=== PATIENT | female | born 2005 | race African-American/Black ===

== ENCOUNTER 2024-07-04 22:03 | Emergency (ER) | payer SELFPAY ==
[2024-07-04 22:08] VITALS: BP 153/93; PULSE 73; RESP 16; TEMP 37; O2SAT 100
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
--- NOTE | 2024-07-04 22:34 | ED.GENADUL_ITS ---
Discharge Plan Disposition Patient Disposition: Home Condition: Good Discharge Details Clinical Impression: Concussion ED Provider: Maria Gomez Home Meds and New Rx's Prescriptions: No Action No Known Home Meds Discharge Instructions Instructions: Minor Head Injury, Adult ED Additional Instructions: Tylenol and ibuprofen over the counter for headache; follow the directions on the bottle. Call your primary care doctor on Friday to schedule an appointment within one week to followup on your visit here. Return to the emergency department for new or worsening symptoms including severe headache, vomiting, difficulty walking, vertigo, numbness, weakness, or if you have any other concerns. Stand Alone Forms: Work Release HPI General Mode of arrival: ambulatory . Date/Time Provider Initiated Documentation: 07/04/24 22:08 . Limitations to Documentation: no limitations . Information obtained by: patient . HPI Narrative: 19yo previously healthy female presenting after head injury. 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 [place] dizzy and confused afterwards. Does not think she lost conciousness but is not sure. No headache currently. Denies pain or injury elsewhere. No nausea, vomiting, numbness, tingling, weakness, vertigo. Not on any blood thinners. Otherwise in her usual state of health. Related Data Home Medications ?Medication ?Instructions ?Recorded ?Confirmed Unknown [No Known Home Meds] 07/04/24 07/04/24 Allergies Allergy/AdvReac Type Severity Reaction Status Date / Time No Known Allergies Allergy Verified 07/04/24 22:20 General Stated Complaint: HeadInjury MAIRA: 3 Review of Systems Narrative: see HPI Exam Narrative Exam Narrative: General: Alert, well appearing, well nourished, in no acute distress. Head: Normocephalic, atraumatic. Nontender. Neck: Trachea midline, ?Neck supple. Full pain free ROM at neck. No midline c-spine tenderness. ENT: ?MMM.? No oropharygeal lesions or exudate. No hemotypanum. Cardiac: ?RRR, no murmurs appreciated Resp: No respiratory distress. CTAB. Abd: ?Soft, non-distended, nontender : ?No suprapubic tenderness. Extremities: ?No deformities.? No peripheral edema. Neuro: ? GCS 15.? PERRL.? EOMI.? Fluent speech, no dysarthria. Slow to respond. Motor- 5/5 strength symmetric bilateral upper and lower extremities including shoulder abductors/adductors, elbow flexors/extensors, wrist flexors/extensors, finger abductors/adductors, hipflexors/extensors, knee flexors/extensors, ankle dorsiflexors and planter flexors. Sensation- ?Intact to light touch and symmetric multiple dermatomes including upper and lower extremities Coordination- No dysmetria on finger to nose Reflexes- 2/4 achilles & patellar, no clonus Gait/station: ?Normal stance.? No truncal ataxia. Steady gait with equal normal steps CRANIAL NERVES: II: Pupils equal and reactive, III, IV, : EOM intact, no gaze preference or deviation, no nystagmus. V: normal sensation in V1, V2, and V3 segments bilaterally VII: no asymmetry, no nasolabial fold flattening VIII: normal hearing to speech IX, X: normal palatal elevation, no uvular deviation XI: 5/5 head turn and 5/5 shoulder shrug bilaterally XII: midline tongue protrusion Course Vital Signs Vital signs: Vital Signs Temperature 37.0 C 07/04/24 22:08 Pulse 73 07/04/24 22:08 Respiratory Rate 16 07/04/24 22:08 Blood Pressure 153/93 H 07/04/24 22:08 Pulse Oximetry 100 07/04/24 22:08 Temperature 37.0 C 07/04/24 22:08 Temperature Source Oral 07/04/24 22:08 Pulse 73 07/04/24 22:08 Respiratory Rate 16 07/04/24 22:08 Respiratory Effort Normal 07/04/24 22:13 Respiratory Depth Normal 07/04/24 22:13 Respiratory Pattern Normal 07/04/24 22:13 Blood Pressure 153/93 H 07/04/24 22:08 Blood Pressure Position Sitting 07/04/24 22:08 Pulse Oximetry 100 07/04/24 22:08 Oxygen Delivery Method Room Air 07/04/24 22:08 Oxygen Flow Rate 0 07/04/24 22:08 Pain Level 2 07/04/24 22:08 Medical Decision Making 19yo previously healthy female presenting after head injury. 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 No LOC or AC. Slightly hypertensive on arrival, vital signs otherwise reassuring. Non-focal neurologic exam and no hemotypanum however patient is somewhat slow to respond and does tell me she feels off; no N/V/WATSON. Low suspicion for acute intracranial injury/bleed. Shared decision making with patient regarding risks/benefits of CT scan; she would strongly prefer CT (versus observation). CT head independently reviewed; no intracranial hemmoraghe or mass on my view, agree with radiology read below. On reassessment she remains well appearing wtih a benign neurologic exam. Suspect concussion. Advised symptomatic treatment at home, PCP followup. Discharged home; discharge instructions and return precautions were reviewed wtih patient who verbalized understanding. All questions were answered and she is in full agreement with the plan. Imaging Data Radiologic Study: Imaging: CT Scan Radiologist's impression: IMPRESSION: 1. No evidence of an acute intracranial abnormality. 2. Mild soft tissue swelling occipital region Quality:SDOH Health Related Social Needs: No Data to Display PFS All Active Problems (Updated 07/04/24 @ 22:43 by Maria Gomez MD) Concussion (Acute) Social History Smoking/Tobacco Use Status: Never Smoking risk assessment performed?: Yes Alcohol Intake: current Alcohol Intake frequency: a few times a month Drug use: Never Substance use type: does not use Housing: apartment Do you feel safe at home: Yes Do you feel safe in your relationship?: Yes
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
[2024-07-04 23:24] VITALS: BP 148/74; PULSE 70; RESP 16; O2SAT 99
== END 2024-07-04 23:26 | disposition home or self-care (01) ==
PROVIDERS: Emergency Provider Student in an Organized Health Care Education/Training Program
DX: S06.0X0A Concussion without loss of consciousness, initial encounter (principal); W22.09XA Striking against other stationary object, initial encounter; Y93.89 Activity, other specified; Y92.090 Kitchen in other non-institutional residence as the place of occurrence of the external cause; Y99.0 Civilian activity done for income or pay
CPT/HCPCS: 99284; 70450; 99283

== ENCOUNTER 2024-09-05 22:07 | Emergency (ER) | payer BC, SELFPAY ==
[2024-09-05 22:10] VITALS: BP 164/85; PULSE 100; RESP 16; TEMP 36.8; O2SAT 100
--- NOTE | 2024-09-05 22:13 | ED.GENADUL_ITS ---
Discharge Plan Disposition Patient Disposition: Home Condition: Good Discharge Details Clinical Impression: Puncture wound of plantar aspect of right foot Primary Care Provider: Krista,Local ED Provider: Hilary Sethi Discharge Instructions Instructions: Taking care of cuts, scrapes, and puncture wounds Additional Instructions: I have placed a referral to care management to help you establish care with a primary care provider. Please follow-up to schedule a new patient appointment There is no sign of infection at this time. Please keep your wound clean and dry. Wash daily with antibacterial soap and water. Cover with a bandage. Your tetanus was updated today. For discomfort I recommend you elevate your foot above heart level, apply ice, and use Tylenol/ibuprofen as needed. Keep an eye out for signs of infection such as redness, swelling, foul odor, pus drainage. If you notice any of these, please seek care immediately as it may indicate need for antibiotics. Referrals: Care Management [Provider Group] HPI General Date/Time Provider Initiated Documentation: 09/05/24 22:10 . HPI Narrative: Rika is a 19year old female who presents to the emergency department today for evaluation of plantar puncture wound. She reports that she stepped on a stud earring with the ball of her right foot on Friday (2 days ago) while wearing socked feet. She washed it thoroughly the next day. She reports it is painful to ambulate, but denies redness, pus drainage, distal numbness/tingling. No significant past medical history. She is not sure when she last had tetanus, believes she may be due for it. Does not have a PCP. She took ibuprofen yesterday but it did not seem to help. Physical exam very reassuring. Rika is well-appearing, appears very anxious during exam. Small closed puncture wound noted to ball of right foot just proximal to the MTP of the great toe. No pain with palpation of dorsum of foot. No redness, pus drainage, or swelling noted. She is able to wiggle her toe, but it does cause discomfort. History and presentation consistent with uncomplicated puncture wound to the f oot. No red flags concerning for retained foreign body, as the earring was fully removed. No indication for x-ray at this time, no concern for bony injury or fracture. No signs at this time of infection either localized or systemic requiring antibiotics or blood work to further eval. As it is 2 days after the incident, prophylactic antibiotics not indicated at this time. While in the emergency department, Rika received tetanus prophylaxis and Toradol shot. Reviewed discharge instructions with patient, including symptomatic management and red flags indicating need for return to emergency care. Referral placed to care management for help establishing care with PCP. Related Data Allergies Allergy/AdvReac Type Severity Reaction Status Date / Time No Known Allergies Allergy Unverified 12/18/17 15:55 General Stated Complaint: Laceration MAIRA: 5 Review of Systems Narrative: See HPI Exam Const General: cooperative, healthy appearing, comfortable, no acute distress and anxious Nutritional Appearance: average body habitus Orientation: alert and oriented x3 Resp Effort & Inspection: normal respiratory effort and able to speak in complete sentences Skin Rashes: no rashes Extrem Right lower extremity: full ROM, normal capillary refill and foot Details: tenderness, no edema and puncture wound plantar medial proximal Details: single; no unusual warmth, no abrasion, no ecchymosis, no crepitus and no foreign bodies Course Vital Signs Vital signs: Vital Signs Temperature 36.8 C 09/05/24 22:10 Pulse 100 H 09/05/24 22:10 Respiratory Rate 16 09/05/24 22:10 Blood Pressure 164/85 H 09/05/24 22:10 Pulse Oximetry 100 09/05/24 22:10 Temperature 36.8 C 09/05/24 22:10 Temperature Source Temporal Artery Scan 09/05/24 22:10 Pulse 100 H 09/05/24 22:10 Respiratory Rate 16 09/05/24 22:10 Blood Pressure 164/85 H 09/05/24 22:10 Blood Pressure Position Sitting 09/05/24 22:10 Pulse Oximetry 100 09/05/24 22:10 Oxygen Delivery Method Room Air 09/05/24 22:10 Oxygen Flow Rate 0 09/05/24 22:10 Pain Level 9 09/05/24 22:10 Medical Decision Making Quality:SDOH Health Related Social Needs: No Data to Display PFSH All Active Problems (Updated 09/05/24 @ 22:31 by Hilary Davidson) Puncture wound of plantar aspect of right foot (Acute) Anxiety (Acute 11/05/12) Constipation (Acute 11/05/12) Enuresis, nocturnal only (Acute 11/05/12) Pediatric body mass index (BMI) of 85th percentile to less than 95th percentile for age (Acute 11/16/15) Routine child health exam (Acute 11/05/12) Family History Mother Healthy adult on routine physical examination Mental disorder DEPRESSION/ANXIETY Father Healthy adult on routine physical examination Other Substance abuse GRANDPARENT Diabetes GRANDPARENT Essential hypertension PGM Heart disease PGF, PGM Mental disorder DEPRESSION-GRANDPARENT Asthma GRANDPARENT Social History Smoking/Tobacco Use Status: Never Smoking risk assessment performed?: Yes Drug use: Never
[2024-09-05] MEDS: Ketorolac 30 MG/ML VIAL IM (22:46)
[2024-09-05] MEDS: Diph,Pertuss(Acell),Tet Vac/Pf 0.5 ML SYR IM (22:56)
== END 2024-09-05 23:23 | disposition home or self-care (01) ==
LOC: ER 22:54
PROVIDERS: Emergency Provider Nurse Practitioner Family
DX: S91.331A Puncture wound without foreign body, right foot, initial encounter (principal); W22.8XXA Striking against or struck by other objects, initial encounter; Y93.01 Activity, walking, marching and hiking; Y92.89 Other specified places as the place of occurrence of the external cause; Z23 Encounter for immunization
CPT/HCPCS: 90471; 90715; 96372; 99284; 99283; J1885